=== PATIENT | male | born 1960 | race Two or more races ===

== ENCOUNTER 2022-02-16 10:47 | Outpatient (REF) | payer OTHER, SELFPAY ==
--- NOTE | ~2022-02-16 | XR_ITS ---
EXAMINATION: XR HAND, RIGHT CLINICAL INFORMATION: Primary osteoarthritis. COMPARISON: None TECHNIQUE: PA, lateral, and oblique views of the right hand. FINDINGS: Bony alignment and mineralization are normal. There is marked osteoarthritic change of the right first carpometacarpal joint, with peripheral osteophyte formation, joint space narrowing and medial subluxation. There is adjacent soft tissue swelling. There is an old, healed fracture of the fifth metacarpal bone, with apex dorsal angulation. There is marked narrowing of the radiocarpal joint. A small well-corticated chronic avulsion fragment is seen posterior to the proximal carpal row on the lateral view. There is the appearance of an old, healed fracture of the ulnar styloid. The ulnocarpal articulation is narrowed. No acute fracture or dislocation is seen. The proximal and distal carpal rows are intact. No abnormal bone erosion is seen. No foreign body is seen. XR/XR hand RT min 3V IMPRESSION: There are multi-focal osteoarthritic changes of the right hand and wrist, most pronounced of the first carpometacarpal and radiocarpal joints. No acute fracture or dislocation is seen. EXAMINATION: XR HAND, LEFT CLINICAL INFORMATION: Primary osteoarthritis. COMPARISON: None TECHNIQUE: PA, lateral, and oblique views of the left hand. FINDINGS: Bony alignment and mineralization are normal. As with the contralateral side, is marked osteoarthritic change of the left first carpometacarpal joint, with peripheral osteophyte formation, joint space narrowing and medial subluxation. There is adjacent soft tissue swelling. There is mild osteoarthritic change of the second and third distal interphalangeal joints and of the second proximal interphalangeal joint, with particular calcifications. There is moderate narrowing of the radiocarpal joint, with periarticular calcifications. There is periarticular calcification of the ulnocarpal joint. No acute fracture or dislocation is seen. The proximal and distal carpal rows are intact. No abnormal bone erosion is seen. No foreign body is seen. IMPRESSION: As with the contralateral side, there are multifocal osteoarthritic changes of the left hand and wrist, most pronounced of the first carpometacarpal and radiocarpal joints. No fracture or dislocation is seen.
== END 2022-02-16 10:48 | disposition home or self-care (01) ==
LOC: HO.XRAY 10:47
PROVIDERS: PCP Internal Medicine; Visit Provider Internal Medicine Rheumatology
DX: M19.041 Primary osteoarthritis, right hand (principal); M19.042 Primary osteoarthritis, left hand
CPT/HCPCS: 73130